=== PATIENT | male | born 1955 | race Caucasian/White ===

== ENCOUNTER → 2023-09-04 | Outpatient (CLI) | payer MEDICAID, SELFPAY ==
--- NOTE | 2023-09-04 08:45 | RAD_ITS ---
INDICATION: PNEUMONIA EXAMINATION/TECHNIQUE: X-RAY - XR Chest 2 Views COMPARISON: No relevant prior comparison study available FINDINGS: LINES/DEVICES: None. LUNGS: The lungs are well expanded. Hazy opacities are seen at both lung bases. No pleural effusion or pneumothorax. MEDIASTINUM AND CARDIOVASCULAR STRUCTURES: Cardiac silhouette not enlarged. There is a prominent hiatal hernia with gas-filled appearance of the stomach. Central airways and mediastinal contour are unremarkable. BONES AND SOFT TISSUES: No acute abnormality. RAD/Chest PA and Lateral IMPRESSION: Prominent markings at both lung bases could be infectious/inflammatory or atelectatic. Prominent hiatal hernia. Electronically Signed: Yariel Cole MD at 17:09 EST ,
== END | disposition home or self-care (01) ==
DX: J18.9 Pneumonia, unspecified organism (principal)
CPT/HCPCS: 71046

== ENCOUNTER → 2024-03-18 | Outpatient (CLI) | payer MEDICAID, SELFPAY ==
[2024-03-18 12:27] LABS: Anion Gap 5 (5-15); BUN 22 mg/dL (7-18); BUN/Creat Ratio 12.9 RATIO (10-20); Calcium,Total 9.7 mg/dL (8.5-10.1); Chloride 109 mmol/L (98-107); Creatinine, Serum 1.71 mg/dL (0.70-1.30); EST Glomerular Filtration Rate 43 mL/min (>60); Est Glom Filt Rate - Afr Amer 51 mL/min (>60); Glucose 116 mg/dL (74-106); Potassium 4.1 mmol/L (3.5-5.1); Sodium Level 138 mmol/L (136-145)
== END | disposition home or self-care (01) ==
LOC: VSLAB 08:51
PROVIDERS: Visit Provider Nurse Practitioner Family
DX: R06.02 Shortness of breath (principal)
CPT/HCPCS: 36415; 80048; 83880

== ENCOUNTER → 2024-05-12 | Outpatient (CLI) | payer MEDICAID, SELFPAY | END | disposition home or self-care (01) | PROVIDERS: PCP Nurse Practitioner Family; Referring Provider Nurse Practitioner Family; Visit Provider Nurse Practitioner Family | DX: R06.02 Shortness of breath (principal) | CPT/HCPCS: 94060 ==

== ENCOUNTER → 2024-07-22 | Outpatient (CLI) | payer MEDICAID, SELFPAY ==
--- NOTE | 2024-07-22 12:49 | ECHOD_ITS ---
Reason For Study: SOB Procedure This was a 2D Doppler, Color Flow transthoracic echocardiogram. Exam performed in department. Left Ventricle Normal LV size. Left ventricular systolic function is normal. The left ventricular ejection fraction is 65 %. Stage 1 diastolic dysfunction. No regional wall motion abnormalities noted. Right Ventricle Normal RV size. Normal systolic function. Atria The left atrium is mildly enlarged. The right atrium is moderately enlarged. Tricuspid Valve Normal tricuspid valve. Mild tricuspid valve insufficiency. Right ventricular systolic pressure estimated to be 30 mmHg. Aortic Valve Normal aortic valve. Pulmonic Valve Normal pulmonic valve. Great Vessels Mildly dilated aortic root. The pulmonary artery is normal size. Normal inferior vena cava. Pericardium/Pleural No pericardial effusion. MMode/2D Measurements & Calculations LVIDd: 4.5 cm IVSd: 0.96 cm Ao root diam: 3.8 cm LVIDs: 3.3 cm LVPWd: 0.97 cm LA dimension: 3.8 cm RVDd: 3.2 cm FS: 26.9 % LAV(MOD-bp): 59.9 ml LVAd ap4: 29.2 cm2 LVAd ap2: 25.7 cm2 LAV(MOD-bp) Indexed: 24.4 ml/m2 LVLd ap4: 8.1 cm LVLd ap2: 8.4 cm LAV(MOD-sp2): 39.7 ml EDV(MOD-sp4): 87.8 ml EDV(MOD-sp2): 67.1 ml LAV(MOD-sp4): 79.2 ml EDV(sp4-el): 89.6 ml EDV(sp2-el): 67.0 ml LVAs ap4: 14.0 cm2 LVAs ap2: 13.7 cm2 LVLs ap4: 6.2 cm LVLs ap2: 6.9 cm ESV(MOD-sp4): 27.0 ml ESV(MOD-sp2): 23.2 ml ESV(sp4-el): 26.7 ml ESV(sp2-el): 23.1 ml EF(MOD-sp4): 69.2 % EF(MOD-sp2): 65.5 % EF(sp4-el): 70.2 % SV(MOD-sp4): 60.8 ml SV(MOD-sp2): 44.0 ml SV(sp4-el): 62.9 ml SI(MOD-sp4): 24.7 ml/m2 SI(MOD-sp2): 17.9 ml/m2 LA A4 area: 24.9 cm2 RA A4 area: 27.3 cm2 TAPSE: 1.9 cm Time Measurements MV dec time: 0.20 sec Doppler Measurements & Calculations MV E max jacob: 64.7 cm/sec Lat Peak E' Jacob: 9.5 cm/sec Med Peak E' Jacob: 9.9 cm/sec MV A max jacob: 77.1 cm/sec E/E' lat: 6.8 E/E' med: 6.6 MV E/A: 0.84 MV V2 max: 85.7 cm/sec MV P1/2t max jacob: 71.4 cm/sec Ao V2 max: 120.2 cm/sec MV max P.9 mmHg MV P1/2t: 84.7 msec Ao max P.8 mmHg MV V2 mean: 47.2 cm/sec Ao V2 mean: 78.5 cm/sec MV mean P.0 mmHg MV dec slope: 247.0 cm/sec2 Ao mean P.7 mmHg MV V2 VTI: 29.3 cm MVA(P1/2t): 2.6 cm2 Ao V2 VTI: 24.0 cm AV (velocity ratio): 0.81 LV V1 max: 90.5 cm/sec PA V2 max: 134.2 cm/sec TR max jacob: 251.4 cm/sec LV V1 max P.3 mmHg PA V2 mean: 95.9 cm/sec TR max P.3 mmHg LV V1 mean P.8 mmHg LV V1 mean: 63.8 cm/sec LV V1 VTI: 19.5 cm ECHO/Echo Complete Interpretation Summary Normal LV size. Left ventricular systolic function is normal. The left ventricular ejection fraction is 65 %. Stage 1 diastolic dysfunction. Ordering Physician: Les Aviles Referring Physician: Les Aviles Performed By: Mahi Jiménez, AI, RVT
== END | disposition home or self-care (01) ==
PROVIDERS: PCP Nurse Practitioner Family; Referring Provider Nurse Practitioner Family; Visit Provider Nurse Practitioner Family
DX: R06.02 Shortness of breath (principal)
CPT/HCPCS: 93306

== ENCOUNTER → 2024-11-18 | Outpatient (CLI) | payer MEDICAID, SELFPAY ==
[2024-11-18 13:06] LABS: Absolute Lymphocyte Count 2.11 X10^3/uL (0.83-4.51); Absolute Neutrophil Count 6.7 X10^3/uL (2.0-7.7); Basophil# 0.03 X10^3/uL; Basophil% 0.3 % (0-1); Eosinophil# 0.21 X10^3/uL; Eosinophils% 2.2 % (0-5); Hematocrit 43.1 % (40-54); Hemoglobin 13.9 g/dL (13.0-16.5); Lymphocyte # 2.11 X10^3/ul (0.83-4.51); Lymphocyte % 21.8 % (19-41); Mean Corp Hgb Conc 32.3 g/dL (32-36); Mean Corpuscular Hgb 31.7 pg (27.0-32.0); Mean Corpuscular Volume 98.4 fL (80-94); Mean Platelet Vol. 10.1 fl (6.2-12.0); Monocyte# 0.63 X10^3/uL; Monocyte% 6.5 % (0-10); NRBC Flagged by Analyzer 0 % (0-5); Neutrophil # 6.66 X10^3/uL (2.7-7.7); Neutrophil % 68.8 % (47-70); Platelet Count 262 K/mm3 (150-450); RBC Distribution Width CV 12.5 % (11.6-14.6); RBC Distribution Width SD 45.2 fl (35.1-43.9); Red Blood Count 4.38 M/mm3 (4.6-6.2); White Blood Count 9.7 K/mm3 (4.4-11.0)
[2024-11-18 14:04] LABS: ALB/GLOB Ratio 1.2 RATIO (0.9-2.4); AST(SGOT) 21 U/L (<=37); Alanine Aminotransfer ALT/SGPT 9 U/L (<=46); Albumin, Serum 4.1 g/dL (3.4-4.8); Alkaline Phosphatase 100 U/L (40-129); Anion Gap 13 (5-15); BUN 22 mg/dL (4-19); BUN/Creat Ratio 15.4 RATIO (10-20); Calcium 10.1 mg/dL (7.6-11.0); Carbon Dioxide 22.9 mmol/L (22.0-29.0); Chloride 105 mmol/L (96-108); Cholesterol 166 mg/dL (<=200); Creatinine, Serum 1.4 mg/dL (0.8-1.3); EST Glomerular Filtration Rate 53 (>60); Globulin 3.4 g/dL (2.2-4.2); Glucose 91 mg/dL (70-99); High Density Lipoprotein 51 mg/dL; Low Density Lipoprotein Calc. 83 mg/dL; Potassium 4.3 mmol/L (3.3-5.1); Protein, Total 7.5 g/dL (5.9-8.4); Sodium Level 141 mmol/L (133-145); Total Bilirubin 0.41 mg/dL (0.00-1.30); Triglycerides 159 mg/dL; Very Low Density Lipoprotein 32 mg/dL (5-40); cholesterol:hdl ratio screen 3.24
== END | disposition home or self-care (01) ==
LOC: VSLAB 10:51
PROVIDERS: PCP Nurse Practitioner Family; Visit Provider Nurse Practitioner Family
DX: F25.0 Schizoaffective disorder, bipolar type (principal)
CPT/HCPCS: 36415; 80053; 80061; 84443; 85025